=== PATIENT | female | born 2000 | race Caucasian/White ===

== ENCOUNTER 2023-11-22 12:02 | Outpatient (CLI) | payer OTHER, SELFPAY ==
[2023-11-22 12:50] LABS: Basophils Percent Auto 0.3 % (0.2-1.2); Eosinophils Absolute Auto 0.1 K/mm3 (0-0.3); Eosinophils Percent Auto 0.6 % (0-4.4); Hematocrit 38.1 % (37.0-47.0); Hemoglobin 12.6 g/dL (12.0-15.0); Immature Granulocyte Absolute 0.06 K/mm3 (0.00-0.031); Immature Granulocyte Percent A 0.6 % (0-0.5); Lymphocytes Absolute Auto 1.34 K/mm3 (0.9-3.2); Lymphocytes Percent Auto 12.6 % (18.3-44.2); Mean Corpuscular HGB Conc 33.1 g/dl (32-36); Mean Corpuscular Hemoglobin 29.3 pg (26-34); Mean Corpuscular Volume 88.6 fl (80-100); Monocytes Absolute Auto 0.7 K/mm3 (0.1-0.6); Monocytes Percent Auto 6.9 % (2.6-8.5); Neutrophils Absolute Auto 8.4 K/mm3 (1.3-6.7); Platelet Count Result 198 k/mm3 (150-375); Red Cell Distribution Width 13.8 % (11.5-14.5); White Blood Count 10.6 K/mm3 (4.5-10.0)
[2023-11-22 12:55] LABS: Add Urine Microscopic? YES; Appearance Urine Clear (Clear); Bacteria Urine 1+ /hpf; Bilirubin Urine Negative (Negative); Blood Urine Negative (Negative); Color Urine Yellow (Yellow); Glucose Urine UA Negative (Negative); Ketones Urine Negative (Negative); Leukocyte Esterase Ur 2+ LEU/UL (Negative); Nitrate Urine Negative (Negative); Non Pathogenic Casts 0-2; Protein Urine Negative (Negative); RBC Urine 0-2 /hpf (0-2); Specific Grav Ur 1.005 (1.001-1.035); Squamous Epithelial Cell Urine Moderate /hpf (Few); Urobilinogen Urine 0.2 mg/dL (<2.0); WBC Urine 21-50 /hpf (0-3)
[2023-11-22 13:02] LABS: Alanine Aminotransferase 27 U/L (6-35); Alkaline Phosphatase 98 U/L (38-126); Anion Gap 11 mmol/L (8-16); Aspartate Amino Transferase 29 U/L (14-36); Bilirubin,Total 0.4 mg/dL (0.2-1.3); Blood Urea Nitrogen 5 mg/dL (7-17); Calcium 9.4 mg/dL (8.4-10.2); Carbon Dioxide 19 mmol/L (22-30); Chloride 105 mmol/L (98-107); Estimated Glomerular Filt Rate > 60; Glucose 86 mg/dL (65-110); Potassium 3.6 mmol/L (3.4-5.0); Sodium 135 mmol/L (137-145); Uric Acid 4.2 mg/dL (2.5-7.5)
[2023-11-22 13:03] LABS: Creatinine Urine 20.8 mg/dL; Total Protein Urine Random 11 mg/dL; Ur Ttl Prot Creatinine Ratio 0.53 mg/mg (0-0.20)
[2023-11-22 13:15] VITALS: BP 129/65; PULSE 107
[2023-11-22 13:30] VITALS: BP 127/68; PULSE 99
[2023-11-22 13:45] VITALS: BP 127/68; PULSE 102
[2023-11-22 14:00] VITALS: BP 130/75; PULSE 94
[2023-11-22 14:12] VITALS: PULSE 106
--- NOTE | 2023-11-22 14:18 | PC.NURSE ---
1330--/Dr. Flyod in department. Reviewed labs and NST. Orders given for 24hour urine and FU in office in one week.
== END 2023-11-22 14:18 | disposition home or self-care (01) ==
LOC: ANHOBOP 12:05 → ANHOBPP 12:06
PROVIDERS: PCP Pediatrics; Visit Provider Student in an Organized Health Care Education/Training Program
DX: O13.9 Gestational [pregnancy-induced] hypertension without significant proteinuria, unspecified trimester (principal); Z3A.00 Weeks of gestation of pregnancy not specified
CPT/HCPCS: 36415; 59025; 80053; 81050; 82570; 82575; 84156; 84550; 85025; 87086; 87088; 99199

== ENCOUNTER 2023-11-23 13:03 | Outpatient (NON) | payer OTHER, SELFPAY ==
[2023-11-23 13:11] VITALS: BMI 32.1
[2023-11-23 15:02] LABS: Total Volume 24 Hour Urine 1600 ml
[2023-11-23 15:02] LABS: Collection Time Urine 24 HOURS
[2023-11-23 15:03] LABS: Patient Weight 187 Lbs; Total Volume 24 Hour Urine 1600 ml
[2023-11-23 15:14] LABS: Creatinine Clearance Urine 255.7 ml/min (75-125); Creatinine Urine 100.8 mg/dL
[2023-11-23 15:28] LABS: Total Protein Urine 24 Hr 80 mg/24hr (28-141); Total Protein Urine Random < 5 mg/dL
== END 2023-11-23 13:04 | disposition home or self-care (01) ==
LOC: ANHOBOP 13:03
PROVIDERS: PCP Pediatrics; Visit Provider Student in an Organized Health Care Education/Training Program
DX: O13.9 Gestational [pregnancy-induced] hypertension without significant proteinuria, unspecified trimester (principal)
CPT/HCPCS: 81050; 82575; 84156

== ENCOUNTER 2024-01-09 15:54 | Outpatient (CLI) | payer OTHER, SELFPAY ==
[2024-01-09 16:30] VITALS: BP 125/73; PULSE 101
[2024-01-09 16:35] LABS: Basophils Percent Auto 0.2 % (0.2-1.2); Eosinophils Absolute Auto 0.1 K/mm3 (0-0.3); Eosinophils Percent Auto 0.7 % (0-4.4); Hematocrit 35.8 % (37.0-47.0); Hemoglobin 11.8 g/dL (12.0-15.0); Immature Granulocyte Absolute 0.06 K/mm3 (0.00-0.031); Immature Granulocyte Percent A 0.6 % (0-0.5); Lymphocytes Absolute Auto 1.55 K/mm3 (0.9-3.2); Mean Corpuscular Hemoglobin 28.6 pg (26-34); Mean Corpuscular Volume 86.9 fl (80-100); Mean Platelet Volume 10.4 fl (7.4-10.4); Monocytes Percent Auto 10.6 % (2.6-8.5); Neutrophils Percent Auto 71.9 % (45.5-73.1); Platelet Count Result 218 k/mm3 (150-375); Red Blood Count 4.12 M/mm3 (4.2-5.4); Red Cell Distribution Width 13.8 % (11.5-14.5); White Blood Count 9.7 K/mm3 (4.5-10.0)
[2024-01-09 16:39] LABS: Creatinine Urine 22.2 mg/dL; Total Protein Urine Random 11 mg/dL
[2024-01-09 16:44] VITALS: BP 129/76; PULSE 102
[2024-01-09 16:46] LABS: Alanine Aminotransferase 27 U/L (6-35); Albumin Level 3.9 g/dL (3.5-5.1); Alkaline Phosphatase 121 U/L (38-126); Anion Gap 8 mmol/L (4-12); Aspartate Amino Transferase 39 U/L (14-36); Bilirubin,Total 0.3 mg/dL (0.2-1.3); Blood Urea Nitrogen 5 mg/dL (7-17); Calcium 8.8 mg/dL (8.4-10.2); Carbon Dioxide 18 mmol/L (22-30); Chloride 107 mmol/L (98-107); Estimated Glomerular Filt Rate > 60; Glucose 89 mg/dL (65-110); Potassium 3.9 mmol/L (3.4-5.0); Sodium 133 mmol/L (137-145); Uric Acid 3.9 mg/dL (2.5-7.5)
[2024-01-09 16:50] LABS: Appearance Urine Clear (Clear); Bacteria Urine None Seen /hpf; Bilirubin Urine Negative (Negative); Blood Urine Negative (Negative); Color Urine Yellow (Yellow); Glucose Urine UA Negative (Negative); Ketones Urine Negative (Negative); Leukocyte Esterase Ur 1+ LEU/UL (Negative); Need Manual Microscopic Reviewed; Nitrate Urine Negative (Negative); Non Pathogenic Casts 0-2; Protein Urine Negative (Negative); RBC Urine 0-2 /hpf (0-2); Specific Grav Ur 1.005 (1.001-1.035); Squamous Epithelial Cell Urine Occasional /hpf (Few); Urobilinogen Urine 0.2 mg/dL (<2.0); WBC Urine 0-5 /hpf (0-3)
[2024-01-09 16:56] LABS: Add Urine Microscopic? YES
[2024-01-09 16:59] VITALS: BP 138/79; PULSE 100
[2024-01-09 17:08] VITALS: BP 125/73; BMI 34.8
[2024-01-09 17:15] VITALS: BP 130/67; PULSE 99
--- NOTE | 2024-01-09 17:25 | PC.NURSE ---
1513--Report to Dr. Floyd re: BP's, NST, and lab results. Orders to DC home with instructions for 24hr urine. Supplies given and instructions for 24hr urine given to pt. and s.o., both verbalize understanding.
== END 2024-01-09 17:20 | disposition home or self-care (01) ==
LOC: ANHOBOP 16:02 → ANHLDR 16:03
PROVIDERS: Visit Provider Student in an Organized Health Care Education/Training Program
DX: O13.9 Gestational [pregnancy-induced] hypertension without significant proteinuria, unspecified trimester (principal); Z3A.00 Weeks of gestation of pregnancy not specified
CPT/HCPCS: 36415; 59025; 80053; 81001; 82570; 84156; 84550; 85025; 99199

== ENCOUNTER 2024-01-10 16:40 | Outpatient (CLI) | payer OTHER, SELFPAY ==
[2024-01-10 17:03] VITALS: BMI 34.8
[2024-01-10 18:47] LABS: Collection Time Urine 24 HOURS
[2024-01-10 19:04] LABS: Total Protein Urine Random 6 mg/dL
[2024-01-10 19:05] LABS: Creatinine Urine 66.7 mg/dL; Patient Weight 209 Lbs
[2024-01-10 19:21] LABS: Creatinine Clearance Urine 219.4 ml/min (75-125); Total Volume 24 Hour Urine 2200 ml
[2024-01-10 19:30] LABS: Total Protein Urine 24 Hr 132 mg/24hr (28-141); Total Volume 24 Hour Urine 2200 ml
== END 2024-01-10 16:41 | disposition home or self-care (01) ==
LOC: ANHOBOP 17:00
PROVIDERS: Visit Provider Student in an Organized Health Care Education/Training Program
DX: O13.9 Gestational [pregnancy-induced] hypertension without significant proteinuria, unspecified trimester (principal); Z3A.00 Weeks of gestation of pregnancy not specified
CPT/HCPCS: 81050; 82575; 84156

== ENCOUNTER 2024-01-15 14:47 | Inpatient (IN) | payer OTHER, SELFPAY ==
[2024-01-15] VITALS (17 sets, daily range): BP systolic 109–156; BP diastolic 60–89; PULSE 83–119; TEMP 37.1; BMI 34.8
[2024-01-15 15:32] LABS: Basophils Percent Auto 0.2 % (0.2-1.2); Eosinophils Absolute Auto 0.1 K/mm3 (0-0.3); Eosinophils Percent Auto 0.7 % (0-4.4); Hemoglobin 11.9 g/dL (12.0-15.0); Immature Granulocyte Absolute 0.06 K/mm3 (0.00-0.031); Immature Granulocyte Percent A 0.6 % (0-0.5); Lymphocytes Percent Auto 11.6 % (18.3-44.2); Mean Corpuscular HGB Conc 32.2 g/dl (32-36); Mean Corpuscular Hemoglobin 28.3 pg (26-34); Mean Corpuscular Volume 87.9 fl (80-100); Mean Platelet Volume 10.7 fl (7.4-10.4); Monocytes Absolute Auto 0.9 K/mm3 (0.1-0.6); Monocytes Percent Auto 8.8 % (2.6-8.5); Neutrophils Absolute Auto 8.1 K/mm3 (1.3-6.7); Neutrophils Percent Auto 78.1 % (45.5-73.1); Platelet Count Result 193 k/mm3 (150-375); Red Blood Count 4.21 M/mm3 (4.2-5.4); White Blood Count 10.4 K/mm3 (4.5-10.0)
--- NOTE | 2024-01-15 15:33 | LDADM ---
This patient, Grecia Howard, was admitted to Labor/Delivery/Recovery 106 on 01/15/24 at 14:47. Plans for labor, pain management and were discussed with patient. Patient/family oriented to hospital policies and general routines including ID bracelet, bed and alarms, visiting hours, pain management, procedures, bathroom and other care routines, personal items, smoking policy, room service/diet and guest tray routines, infant security routines, and visiting hours. Patient/Family are encouraged to report perceived risks to care and to ask questions if they do not understand what they are told or what they should do. See OBIX for further documentation.
[2024-01-15] MEDS: miSOPROStol 25 MCG TABLET 50 MCG BY MOUTH (15:57)
[2024-01-15 16:45] LABS: Rapid Plasma Reagin Non-Reactive (NonReactive)
--- NOTE | 2024-01-15 17:54 | WPDANESEPP ---
Anes - Eval Pre Procedure Procedure: labor epidural Date/Time: 01/15/24 17:54 Pre Op Diagnosis: IOL Patient Data Age: 23 Gender: F Height: 1.65 m Weight: 95 kg Last Vital Signs Temp 37.1 C 01/15/24 16:45 Pulse 104 H 01/15/24 17:30 BP 140/82 01/15/24 17:30 O2 Del Method Room Air 01/15/24 15:32 Allergies Allergy/AdvReac Type Severity Reaction Status Date / Time Penicillins Allergy Severe Swelling Verified 01/09/24 15:18 of Lip/Tongue/Throat amoxicillin Allergy Mild Rash Verified 01/09/24 15:18 Home Medications Medication Instructions Recorded Confirmed Type albuterol sulfate 90 mcg/actuation 1 puff inhalation PRN PRN sob 05/15/23 01/15/24 History aerosol inhaler fluticasone propionate 110 1 puff inhalation PRN PRN SOB 05/15/23 01/15/24 History mcg/actuation HFA aerosol inhaler (Flovent HFA) meclizine 25 mg tablet 25 mg PO BID PRN dizziness #30 tabs 12/26/23 01/15/24 Rx Laboratory Tests 01/15/24 15:04 WBC 10.4 H K/mm3 (4.5-10.0) RBC 4.21 M/mm3 (4.2-5.4) Hgb 11.9 L g/dL (12.0-15.0) Hct 37.0 % (37.0-47.0) MCV 87.9 fl (80-100) MCH 28.3 pg (26-34) MCHC 32.2 g/dl (32-36) RDW 14.0 % (11.5-14.5) Plt Count 193 k/mm3 (150-375) MPV 10.7 H fl (7.4-10.4) Immature Gran % (Auto) 0.6 H % (0-0.5) Neut % (Auto) 78.1 H % (45.5-73.1) Lymph % (Auto) 11.6 L % (18.3-44.2) Dane % (Auto) 8.8 H % (2.6-8.5) Eos % (Auto) 0.7 % (0-4.4) Baso % (Auto) 0.2 % (0.2-1.2) Lymph # (Auto) 1.20 K/mm3 (0.9-3.2) Dane # (Auto) 0.9 H K/mm3 (0.1-0.6) Eos # (Auto) 0.1 K/mm3 (0-0.3) Baso # (Auto) 0.0 K/mm3 (0.0-0.1) Abs Immat Gran (auto) 0.06 H K/mm3 (0.00-0.031) Absolute Neuts (auto) 8.1 H K/mm3 (1.3-6.7) Absolute Nucleated RBC 0.000 K/mm3 (0.0-0.012) Nucleated RBC % 0.0 % (0.0-0.2) RPR Non-reactive (NonReactive) Blood Type O Positive Antibody Screen Negative Patient hx anesthesia problems: none Family hx anesthesia problems: none Results Review: All pre-operative results and documents have been reviewed as part of the pre-operative evaluation. [facility] Past Medical History Medical History (Updated 01/15/24 @ 17:55 by Ruth Joy CRNA) Asthma Gestational hypertension History of broken finger Suppression of menses Family History Family History Mother Breast cancer Grandparent Dementia Breast cancer Other Breast cancer Sibling Marfan syndrome Other Patient's mother is Social History Social History Smoking status: Never smoker Alcohol intake: current Alcohol use details: occasional-not while Substance use: never Do You Feel Safe in your Home?: Yes Lack of Transportation: No Lack of Food: Never True Current Housing: I Have Housing Concerned About Future Housing: No Difficulty Paying Gas/Electric Bills: No Difficulty Paying for Meds: No Currently Unemployed: No Education: Don't Know Difficulty w/ Childcare or Family Care: No Living arrangements: with family Occupation/Education: occupation Gender identity (if verbalized by the patient): Female Sexual Orientation (if Verbalized by the Patient): Straight or Heterosexual Spiritual care concerns: No Exam Day of Procedure 01/15/24 17:54 Patient weight: obese Heart: regular rate and rhythm Lungs: normal air movement Airway: Mallampati scale Neurological: alert and oriented
--- NOTE | 2024-01-15 18:18 | PM.OBPNLAB ---
Pain Control Date/time seen: 01/15/24 18:18 Pain control: tolerating well Pelvic Exam Dilation (cm): 2 Effacement (%): 50 station: -3 Amniotic membrane status: Intact Contractions Monitor mode: External Contraction pattern: Regular Status status: Category l Assessment and Plan Assessment: induction ongoing Comments: Katharine cervical catheter placed. 40 mL of saline in each balloon
[2024-01-15] MEDS: LACTATED RINGERS 500 ML 999 ML IV CONT (19:10)
[2024-01-15] MEDS: OXYTOCIN 30 UNITS/NS 500 ML 30 UNITS/500 ML BAG IV CONT (22:00)
[2024-01-16] VITALS (160 sets, daily range): BP systolic 96–152; BP diastolic 43–88; PULSE 66–156; RESP 18; TEMP 36.1–37; O2SAT 81–100
[2024-01-16] MEDS: LACTATED RINGERS 1,000 ML 125 ML IV CONT ×3 (02:29→12:26)
[2024-01-16] MEDS: ONDANSETRON INJ 4 MG/2 ML VIAL IV PUSH (05:14)
--- NOTE | 2024-01-16 13:54 | PM.OBPRVD ---
OB - Vaginal Delivery Note Procedure Delivery date: 01/16/24 Induction method: Per Misoprostol Protocol Delivery augmentation: Pitocin Delivery monitor: External FHT Episiotomy description: None Laceration Description: Perineal - 2nd Degree Delivery repair: vicryl Specimen: No Quantitative Blood Loss (ml): 200 Anesthesia type: Epidural Disposition: Floor Complications: No immediate complications Narrative: Patient pushed for a spontaneous vaginal delivery. The fetus was delivered atraumatically and placed on the maternal abdomen. The fetus was noted to have good tone, color, and cry with minimal stimulation. The cord was clamped and cut after 1 minute of life. The cord was double clamped and cut and a segment of cord was collected for cord gases. Cord blood was collected for blood type and Coomb's testing. The placenta delivered spontaneously and was noted to be intact. The perineum was inspected and a second degree perineal laceration was noted. The laceration was repaired wiht 3-0 vicryl in a running fashion. The uterus was firm and good hemostasis was noted. [place] [facility] Date of : 01/16/24 Time of : 13:22 Weeks of gestation at delivery: 39 gender: Male presentation: vertex position: Left Occiput Transverse Placenta delivery description: Spontaneous Cord Vessel Description: 3 Vessels score one minute: 8 score five minutes: 9
[2024-01-16] MEDS: OXYTOCIN 30 UNITS/NS 500 ML 30 UNITS/500 ML BAG 125 UNITS IV CONT (14:11)
[2024-01-16] MEDS: IBUPROFEN 600 MG TABLET PO (15:42)
[2024-01-16] MEDS: WITCH HAZEL 40 PADS 1 PAD TOPICAL (15:43)
[2024-01-16] MEDS: BENZOCAINE 20% AER SPR (*SP) 56 GM CAN 1 SPRAY TOPICAL (15:43)
--- NOTE | 2024-01-16 16:05 | OBPPTRN ---
Patient transferred to post room #285 via wheelchair. Support person present. Oriented to unit, room, information board, rooming in, admission packet and security measures. Patient verbalizes understanding.
[2024-01-17 04:26] VITALS: BP 117/71; PULSE 78; RESP 18; TEMP 36.5
[2024-01-17] MEDS: ACETAMINOPHEN 325 MG TABLET 650 MG PO ×2 (04:27→17:33)
[2024-01-17 04:35] LABS: Hematocrit 31.1 % (37.0-47.0); Hemoglobin 10.3 g/dL (12.0-15.0)
--- NOTE | 2024-01-17 07:36 | WPDANLDPN2 ---
Anes-Prog Note L&D Date/Time: 01/17/24 07:36 Comfortable throughout: labor and delivery Neuraxial method: epidural Epidural/Spinal procedure site: tender Neuro status: Neuro function grossly intact. Cardiovascular status: normal Respiratory status: normal Airway patency: baseline Mental status: baseline Post-Op hydration status: normal Vital Signs: Last Vital Signs Temp 36.5 C 01/17/24 04:26 Pulse 78 01/17/24 04:26 Resp 18 01/17/24 04:26 BP 117/71 01/17/24 04:26 Pulse Ox 95 01/16/24 16:19 O2 Del Method Room Air 01/16/24 20:15 Pain score (VAS): 2/10 I/O: Intake & Output 01/16/24 01/16/24 01/17/24 15:59 23:59 07:59 Intake Total 2204.2 Output Total 200 100 Balance 2004.2 -100 Post-procedural complaints: none Patient feedback: Patient satisfied with anesthetic care.
--- NOTE | 2024-01-17 08:09 | PM.OBPNVD ---
OB - PN: Subj Subjective Date/time seen: 01/17/24 08:09 Patient comments: no complaints, pain well controlled and tolerating diet [place] feeding status: exclusively breast feeding Narrative: patient doing well this AM. No complaints. Pain is well controlled. She reports minimal bleeding. She is ambulating and voiding without difficulty. She is tolerating PO. She denies N/V, fever, chills. OB - PN: Obj Data Labs 01/17/24 04:21 Labs: Laboratory Results - last 24 hr 01/17/24 04:21 Hgb 10.3 L Hct 31.1 L OB - PN A/P Plan day: 1 Plan: routine care Comments: patient doing well H/H stable pt desires circumcision. Risks, benefits, alternatives discussed. Will wait for canvas shop laborer clearance to perform circumcision continue routine care Time Spent With Patient Time: Total time spent is greater than 50% in coordination of care (as documented) at patient's floor/unit and/or counseling patient: Time with patient: less than 15 minutes Review of Systems Review of Systems: All systems reviewed & are unremarkable except as noted in HPI and below Exam Const: General: comfortable and no acute distress Resp: Effort & Inspection: normal respiratory effort Cardio: Rate: regular rate GI: GI Palp: Yes Soft to palpation and No Tenderness to palpation present (GI) Auscultation: normal bowel sounds Other: fundus firm and below umbilicus. Psych: Affect: normal affect
[2024-01-17 08:10] VITALS: BP 122/66; PULSE 87; RESP 18; TEMP 36.5; O2SAT 98
[2024-01-17] MEDS: DOCUSATE SODIUM 100 MG CAPSULE PO ×2 (09:04→17:33)
[2024-01-17] MEDS: MULTIVIT/MIN/PREN/FOL AC/IRON TABLET 1 TAB PO (09:04)
[2024-01-17] MEDS: IBUPROFEN 600 MG TABLET PO (09:04)
[2024-01-17] MEDS: LANOLIN (LANSINOH) 7.5 GM CREAM 1 APPLIC TOPICAL (09:06)
--- NOTE | 2024-01-17 10:04 | PC.NURSE ---
[id number] Introductions were made, then consulted with patient to assess needs related to . Discussed with mother her?plans to feed?her infant, the?experience so far with no pain or misshaping and any questions or concerns parents may have. Encouraged understanding of the benefits of skin to skin (demonstrating unwrapping and placing upright on her chest), stimulating with massage touch, changing positions to encourage wakefulness, how to watch for early feeding cues, responsive feeding, feeding on demand (aiming for 8-12 times in 24 hours, about every 2-3 hours), milk production, building/maintaining a milk supply, duration of feeding, signs of adequate intake/output and how to record on the feeding sheet. has appropriate output for less than 12 hours old with one void and copious stool. Mother works well with her infant with encouragement, education and infant is alert and awake. Reviewed comfort measures of healing with a warm, wet washcloth to rinse breast, then leave open to air-dry, good handwashing when or touching the breast/nipples to prevent infection. Mother voiced understanding of skin to skin, stimulating with massage touch, responsive feedings, hand expressed colostrum, talking to to encourage if it has been 2 -2.5 hours since the start of the last , to call if infant does not latch, or if there is discomfort with . Answered questions regarding SSE. Resources used for education were facilitated with the visual educational handouts/ tool/mom and baby guide. Inpatient/outpatient resources provided with feeding sheet, name written on the communication board, and the mom/baby guide. Parents voiced understanding of information, demonstrated learning and will call if there is a request for assistance. Reported to the Primary RN.
[2024-01-17 12:03] VITALS: BP 127/59; PULSE 97; RESP 16; TEMP 36.8; O2SAT 99
--- NOTE | 2024-01-17 14:41 | P.DS_ITS ---
DS: Admitting Diagnosis Discharge Date 01/18/24 Admitting Diagnosis intrauterine at term DS: Discharge Diagnosis Discharge Diagnosis (1) Normal vaginal delivery: Code(s): O80 - Encounter for full-term uncomplicated delivery Status: Acute OB - DS: Summary OB Procedures : None OB Procedures Intrapartum: Spontaneous Vag Delivery OB Procedures: : None Peripartum Data Laceration Description: Perineal - 2nd Degree Episiotomy description: None Status at Discharge Functional status at discharge: independent ambulation Overall status at discharge: patient is back to baseline Time Spent with Patient Time attestation: Total time spent providing and/or coordinating discharge services: Time spent: Less than 30 minutes Exam Const: General: comfortable and no acute distress Resp: Effort & Inspection: normal respiratory effort Auscultation: clear to auscultation bilaterally Cardio: Rate: regular rate GI: GI Palp: Yes Soft to palpation Auscultation: normal bowel sounds Other: Fundus firm below umbilicus Psych: Appearance: grossly normal Mental Status: mental status grossly normal Affect: normal affect DS: Data Data Completed and Pending Labs on day of discharge: Labs from last 24 hours 01/17/24 04:21 Hgb 10.3 L Hct 31.1 L Discharge Plan Discharge Discharging Clinician: Pelon Floyd Patient Disposition: Home, Self-Care Activity: as tolerated and pelvic rest Diet: regular Patient Instructions: Antibiotic Form Stand Alone Forms: General Discharge Information Follow-up/Referrals: Pelon Floyd MD [Physician] - 4 Weeks Discharge Medications: New ibuprofen 600 mg tablet 600 mg PO Q6H PRN (Reason: pain) Qty: 30 0RF acetaminophen 500 mg tablet 500 mg PO Q6H PRN (Reason: pain) Qty: 30 0RF Continued fluticasone propionate [Flovent HFA] 110 mcg/actuation HFA aerosol inhaler 1 puff inhalation PRN PRN (Reason: SOB) albuterol sulfate 90 mcg/actuation HFA aerosol inhaler 1 puff inhalation PRN PRN (Reason: sob) meclizine 25 mg tablet 25 mg PO BID PRN (Reason: dizziness) Qty: 30 1RF Date of admission: 01/15/24 14:47 Primary Care Provider: PHYSICIAN,MARKETING ANALYTICS MANAGER Admitting Provider: Pelon Floyd Attending physician on admission: Pelon Floyd Condition: Stable
[2024-01-17 20:30] VITALS: BP 126/76; PULSE 79; RESP 18; TEMP 36.9
[2024-01-18 08:05] VITALS: BP 125/84; PULSE 96; RESP 16; TEMP 36.8; O2SAT 100
[2024-01-18] MEDS: IBUPROFEN 600 MG TABLET PO (09:30)
[2024-01-18] MEDS: MULTIVIT/MIN/PREN/FOL AC/IRON TABLET 1 TAB PO (09:30)
[2024-01-18] MEDS: DOCUSATE SODIUM 100 MG CAPSULE PO (09:30)
--- NOTE | 2024-01-18 11:57 | PC.NURSE ---
[id number] Purposefully rounded to discuss concerns and changing care recommendations they received last night. Answered and clarified many question and discussed the assessments that are ongoing and needs for change along with recommendations and care based on test and assessment. Clarified understanding of jaundice, prevention of increasing with the possibility of supplementation of EBM or formula if necessary, however; not medically ordered at this time. has had appropriate feedings in the last 24 hours meets the outcomes for weight, output (4 voids the first 24 hours and no void since 1800), blood sugar and jaundice (we discussed the increase related to the cephalohematoma) at this time and continue to be assessed. Reinforced understanding of milk production, transition of milk, signs of adequate intake, transition of stool, prevention/relief of engorgement, plugged ducts, mastitis, responsive watching for feeding cues, the different methods of stimulating infant to breastfeed 1-3 hours after the start of the last feeding, community resources, and when to call a provider using the resource of the feeding sheet along with the mom and baby guide. We discussed what expectations are moving forward and when to supplement, when call the MD if needed going home. Mother demonstrated independently latching infant to her left breast using cross cradle, then the right breast. swallows more frequently with longer sucks on the left at this feeding session. Encouraged frequently every 1-3 hours to not go past 3 hours in the next 24 hours. Rest when possible and eat well. After much discussion and an effective session infant was taken to the nursery by the maeve West RN for a circumcision to be performed by the doctor. 1025 - Mother independently latched her infant to the left breast using cross cradle positioning, denied pain and swallowed at the minimum of every 3 suck and at times more frequently. Mother is confident going home and their . Parents voiced understanding of when to supplement and call the MD using the feeding sheet and mom/baby guide as resource information and to keep infant with swallowing without going past 3 hours.
[2024-01-19 08:53] VITALS: BP 127/83; PULSE 97; RESP 20; TEMP 36.6; O2SAT 98
== END 2024-01-18 14:05 | disposition home or self-care (01) | DRG 807 ==
LOC: ANHLDR 14:53 → ANHOB2 01-16 16:08
PROVIDERS: Admitting Provider Student in an Organized Health Care Education/Training Program; Visit Provider Student in an Organized Health Care Education/Training Program
DX: O70.1 Second degree perineal laceration during delivery (principal); Z37.0 Single live birth; Z3A.39 39 weeks gestation of pregnancy
CPT/HCPCS: 36415; 85014; 85018; 85025; 86592; 86850; 86900; 86901; A9270; J2405; J2590; J2795; J7120